=== PATIENT | female | born 1980 | race Caucasian/White ===

== ENCOUNTER → 2023-11-08 17:13 | Outpatient (REF) | payer OTHER, SELFPAY ==
[2023-11-15 00:47] LABS: HPV, High Risk Not Detected; HPV, High Risk Source Anal
== END ==
LOC: CLAB 17:13
PROVIDERS: ATTENDING PHYSICIAN Surgery
DX: Z85.048 Personal history of other malignant neoplasm of rectum, rectosigmoid junction, and anus (principal)
CPT/HCPCS: 87624; 88112

== ENCOUNTER → 2023-12-31 06:19 | Day surgery (SDC) | payer OTHER, SELFPAY | LOC: GI 06:19 | PROVIDERS: ATTENDING PHYSICIAN Surgery | DX: Z12.11 Encounter for screening for malignant neoplasm of colon (principal); Z85.048 Personal history of other malignant neoplasm of rectum, rectosigmoid junction, and anus; D12.8 Benign neoplasm of rectum | CPT/HCPCS: 45338; 88305 ==

== ENCOUNTER → 2024-02-04 08:01 | Outpatient (REF) | payer OTHER, SELFPAY | LOC: RAD 08:01 | PROVIDERS: ATTENDING PHYSICIAN Internal Medicine Hematology & Oncology; FAMILY PHYSICIAN Family Medicine | DX: C20 Malignant neoplasm of rectum (principal); D50.9 Iron deficiency anemia, unspecified | CPT/HCPCS: 71260; 74177; Q9967 ==

== ENCOUNTER 2024-09-16 06:20 | Day surgery (SDC) | payer OTHER, SELFPAY ==
[2024-09-16 08:56] VITALS: BMI 33.6
[2024-09-16 09:06] VITALS: BP 163/114
[2024-09-16 09:07] VITALS: BP 167/111
[2024-09-16 09:08] VITALS: BMI 33.6
[2024-09-16] MEDS: NORMOSOL-R/PLASMALYTE-A 1000 IV (09:32)
[2024-09-16] MEDS: TYLENOL 1000 MG PO (09:32)
[2024-09-16 11:20] VITALS: BP 137/101
[2024-09-16 11:30] VITALS: BP 138/104
[2024-09-16 11:45] VITALS: BP 142/104
[2024-09-16 12:00] VITALS: BP 154/106
== END 2024-09-16 12:13 | disposition home or self-care (01) ==
LOC: SDS 06:20
PROVIDERS: ATTENDING PHYSICIAN Surgery; FAMILY PHYSICIAN Family Medicine
DX: Z08 Encounter for follow-up examination after completed treatment for malignant neoplasm (principal); Z85.048 Personal history of other malignant neoplasm of rectum, rectosigmoid junction, and anus
CPT/HCPCS: 45330; 36590